=== PATIENT | female | born 2000 | race American Indian/Alaskan Native ===

== ENCOUNTER 2020-02-24 00:41 | Observation (INO) | payer OTHER ==
[2020-02-24] MEDS ORDERED: MORPHINE 4 MG/1 ML INJ IV ONE (00:49)
[2020-02-24] MEDS ORDERED: SODIUM CHLORIDE 0.9% 1000 ML 1,000 ML IV ONE (00:49)
[2020-02-24] MEDS ORDERED: ONDANSETRON 4 MG/2 ML INJ IV ONE (00:49)
--- NOTE | 2020-02-24 00:50 | Emergency Department Report ---
ED General Adult HPI - General Chief complaint: OB/Uterine Contractions Stated complaint: 19 WEEKS /ABDOMINAL PAIN PUI?: No Time Seen by Provider: 02/24/20 00:48 Source: patient, EMS ( EMS documentation not available at time of chart dictation ), RN notes reviewed Mode of arrival: Stretcher Limitations: Physical Limitation - History of Present Illness Initial comments: The patient was evaluated in the emergency department for symptoms described in the history of present illness. He/she was evaluated in the context of the global COVID-19 pandemic, which necessitated consideration that the patient might be at risk for infection with the virus that causes COVID-19. Institutional protocols and algorithms that pertain to the evaluation of patients at risk for COVID-19 are in a state of rapid change based on inform ation released by regulatory bodies including the CDC and federal and state organizations. These policies and algorithms were followed during the patient's care in the emergency department. Please note that these policies, procedures and recommendations changed on a rapid basis. During the entire history and physical examination, I am swatch paster and escorted by vice president quality assurance Brenna Hopson Patient is a 20-year-old female, who is G3, P1, last menstrual period early October, who follows with an outside ORCHESTRA DIRECTOR group, brought to the hospital by emergency medical services with a complaint of nontraumatic abdominal pain, cramping, vaginal bleeding and spotting. Symptoms are constant for the past few hours. The patient denies headache, neck pain, chest pain, shortness of breath, irritative and obstructive urinary symptoms. She denies COVID symptoms. Her symptoms were constant. In the emergency room, the patient delivered a nonviable fetus, which was not breathing, or moving, still attached to the umbilical cord, with the placenta still within the patient's uterus. The patient was accepted to transfer to the labor and delivery service by desktop support technician Ellen Dave, working with [facility] Supervisor -: Sudden, hour(s) Consistency: constant Improves with: none Worsens with: none - Related Data Allergies Allergy/AdvReac Type Severity Reaction Status Date / Time strawberry Allergy Rash Verified 02/24/20 00:46 ED Review of Systems ROS: Stated complaint: 19 WEEKS /ABDOMINAL PAIN Other details as noted in HPI Constitutional: denies: fever Eyes: denies: eye discharge ENT: denies: epistaxis Respiratory: denies: cough Cardiovascular: denies: syncope Gastrointestinal: abdominal pain Genitourinary: abnormal menses Neurological: weakness Psychiatric: anxiety ED Physical Exam - General Limitations: Physical Limitation General appearance: alert, anxious, in distress - Head Head exam: Present: atraumatic, normocephalic - Eye Eye exam: Present: normal appearance, EOMI. Absent: nystagmus - ENT ENT exam: Present: normal exam, normal orophraynx, mucous membranes moist, normal external ear exam - Neck Neck exam: Present: normal inspection, full ROM. Absent: tenderness, meningismus - Respiratory Respiratory exam: Absent: respiratory distress, wheezes, rales, rhonchi, stridor, decreased breath sounds - Cardiovascular Cardiovascular Exam: Present: normal rhythm, tachycardia, normal heart sounds. Absent: systolic murmur, diastolic murmur, rubs, gallop - GI/Abdominal GI/Abdominal exam: Present: soft. Absent: distended, tenderness, guarding, rebound, rigid, pulsatile mass - External exam: Present: normal external exam Speculum exam: Present: vaginal bleeding Bi-manual exam: Present: other (Chaperoned by Brenna Hopson) - Extremities Exam Extremities exam: Present: normal inspection, full ROM, other (2+ pulses noted in the bilateral upper and lower extremities. There is no palpable cord. negative Homans sign. Muscular compartments are soft. The pelvis is stable.). Absent: pedal edema, calf tenderness - Back Exam Back exam: Present: normal inspection, full ROM. Absent: tenderness, CVA tenderness (R), CVA tenderness (L), paraspinal tenderness, vertebral tenderness - Neurological Exam Neurological exam: Present: alert, other (No facial droop. Tongue midline. Extraocular movements intact bilaterally. Facial sensation intact to light touch in V1, V2, V3 distribution bilaterally. 5 and a 5 strength in 4 extremities. Sensation intact to light touch in 4 extremities.) - Psychiatric Psychiatric exam: Present: anxious - Skin Skin exam: Present: warm, dry, intact, normal color. Absent: rash ED Course Vital Signs 02/24/20 02/24/20 02/24/20 00:46 00:51 01:00 Temperature Pulse Rate 103 H 98 H 86 Respiratory 30 H 18 Rate Blood Pressure 127/52 123/64 O2 Sat by Pulse 100 100 Oximetry 02/24/20 02/24/20 01:10 02:19 Temperature 98.8 F 98.5 F Pulse Rate Respiratory Rate Blood Pressure O2 Sat by Pulse Oximetry - Reevaluation(s) Reevaluation #1: 02/24/20 01:33 Patient delivered placenta while in the emergency room. She appears more comfortable. Laboratory studies and ultrasound pending. Depending on results of ultrasound, if there are no retained products of conception identified, patient may not require transfer to labor and delivery. The patient has been updated. Reevaluation #2: 02/24/20 02:46 Laboratory studies are reviewed and appreciated. Ultrasound interpretation is pending at this time. Patient to be transferred to labor and delivery floor for observation serial H&H. Mild hypokalemia reviewed and appreciated. We will replete this in the emergency room. ED Medical Decision Making - Lab Data Result diagrams: 02/24/20 01:44 02/24/20 01:44 Vital Signs 02/24/20 02/24/20 02/24/20 00:46 00:51 01:00 Temperature Pulse Rate 103 H 98 H 86 Respiratory 30 H 18 Rate Blood Pressure 127/52 123/64 O2 Sat by Pulse 100 100 Oximetry 02/24/20 01:10 Temperature 98.8 F Pulse Rate Respiratory Rate Blood Pressure O2 Sat by Pulse Oximetry Lab Results 02/24/20 02/24/20 02/24/20 Range/Units 01:44 01:44 01:44 WBC 10.8 (4.5-11.0) K/mm3 RBC 3.02 L (3.65-5.03) M/mm3 Hgb 9.9 L (10.1-14.3) gm/dl Hct 28.9 L (30.3-42.9) % MCV 96 (79-97) fl MCH 33 H (28-32) pg MCHC 34 (30-34) % RDW 13.5 (13.2-15.2) % Plt Count 246 (140-440) K/mm3 Lymph % (Auto) 13.1 L (13.4-35.0) % [place] % (Auto) 7.9 H (0.0-7.3) % Eos % (Auto) 0.2 (0.0-4.3) % Baso % (Auto) 0.2 (0.0-1.8) % Lymph # 1.4 (1.2-5.4) K/mm3 [place] # 0.9 H (0.0-0.8) K/mm3 Eos # 0.0 (0.0-0.4) K/mm3 Baso # 0.0 (0.0-0.1) K/mm3 Seg Neutrophils % 78.6 H (40.0-70.0) % Seg Neutrophils # 8.5 H (1.8-7.7) K/mm3 PT 14.7 (12.2-14.9) Sec. INR 1.14 H (0.87-1.13) Sodium 140 (137-145) mmol/L Potassium 3.3 L (3.6-5.0) mmol/L Chloride 108.6 H (98-107) mmol/L Carbon Dioxide 19 L (22-30) mmol/L Anion Gap 16 mmol/L BUN 6 L (7-17) mg/dL Creatinine 0.4 L (0.6-1.2) mg/dL Estimated GFR > 60 ml/min BUN/Creatinine Ratio 15 % Glucose 87 (65-100) mg/dL Calcium 8.3 L (8.4-10.2) mg/dL Total Bilirubin 0.20 (0.1-1.2) mg/dL AST 8 (5-40) units/L ALT < 5 L (7-56) units/L Alkaline Phosphatase 45 (35-129) units/L Total Protein 6.0 L (6.3-8.2) g/dL Albumin 3.1 L (3.9-5) g/dL Albumin/Globulin Ratio 1.1 % - Radiology Data Radiology results: report reviewed, image reviewed Print Report Referring Physician: ZANA HUDSON Patient Name: ARIADNE CHAN Date of : 2000 Sex: Female Report Date: 2020-02-24 Report Status: Finalized Findings [facility] [address] [place] [address] Ultrasound Report Signed Patient: ARIADNE CHAN MR #: [id number] : 2000 Acct:[id number] Age/Sex: 20 / F ADM Date: 02/24/20 Loc: ED Attending Dr: Ordering Physician: ZANA HUDSON MD Date of Service: 02/24/20 Procedure(s): US OB limited Accession Number(s): [id number] cc: ZANA HUDSON MD LIMITED OBSTETRICAL ULTRASOUND HISTORY: Miscarriage. Evaluate for for retained products of conception. FINDINGS: Imaging was performed by transabdominally and endovaginally. The uterus measures 14.5 x 8.3 x 9.2 cm and is mildly heterogeneous. The endometrial stripe is mildly thickened measuring 1.3 cm. No intrauterine or retained products of conception are identified. The ovaries are nonvisualized. No adnexal mass or fluid seen. IMPRESSION: 1. Mildly thickened endometrial stripe. 2. No retained products of conception or intrauterine . Signer Name: Freeman Collazo MD Signed: 02/24/2020 2:40 AM Workstation Name: [id number] Transcribed By: ES Dictated By: Freeman Collazo MD Electronically Authenticated By: Freeman Collazo MD Signed Date/Time: 02/24/20239 DD/ 7 - Medical Decision Making Differential diagnosis, including but not limited to: Spontaneous miscarriage/, retained placenta Assessment and plan: 20-year-old female, who is reportedly G3, P1, presenting with a previable , less than 20 weeks, delivered spontaneously in the emergency room, nonviable fetus is still attached to umbilical cord and placenta. The patient is protecting her airway at this time and is hem odynamically stable, and was accepted to the labor and delivery floor for delivery of the placenta and further management. Critical care attestation.: If time is entered above; I have spent that time in minutes in the direct care of this critically ill patient, excluding procedure time. ED Disposition Clinical Impression: Miscarriage Retained placenta Qualifiers: Retained placenta detail: unspecified Qualified Code(s): O73.0 - Retained placenta without hemorrhage Disposition: DC/TX-70 ANOTHER TYPE HLTHCARE Is pt being admited?: No Does the pt Need Aspirin: No Condition: Stable Additional Instructions: Patient should not eat anything. Patient is going to be sent to labor and delivery for further evaluation and management of miscarriage, and retained placenta. Please follow instructions as per ORCHESTRA DIRECTOR team Referrals: [facility] [Provider Group] - STEVE (Patient will be discharged from emergency room to go to labor and delivery) Time of Disposition: 01:10 (Patient will be discharged and transferred to labor and delivery)
[2020-02-24 02:20] LABS: Albumin 3.1 g/dL (3.9-5); Blood Urea Nitrogen 6 mg/dL (7-17); Calcium 8.3 mg/dL (8.4-10.2); Hemolysis Index 5
[2020-02-24 02:21] LABS: Basophils % (Auto) 0.2 % (0.0-1.8); Eosinophils % (Auto) 0.2 % (0.0-4.3); Hematocrit 28.9 % (30.3-42.9); Hemoglobin 9.9 gm/dl (10.1-14.3); Lymphocytes # (Auto) 1.4 K/mm3 (1.2-5.4); Lymphocytes % (Auto) 13.1 % (13.4-35.0); Mean Corpuscular HGB Conc 34 % (30-34); Mean Corpuscular Volume 96 fl (79-97); Monocytes # (Auto) 0.9 K/mm3 (0.0-0.8); Monocytes % (Auto) 7.9 % (0.0-7.3); Platelet Count 246 K/mm3 (140-440); Red Blood Count 3.02 M/mm3 (3.65-5.03); Red Cell Distribution Width 13.5 % (13.2-15.2)
[2020-02-24 02:27] LABS: Alanine Aminotransferase < 5 units/L (7-56); BUN/Creatinine Ratio 15
[2020-02-24 02:33] LABS: INR 1.14 (0.87-1.13)
--- NOTE | 2020-02-24 02:41 | Event Note ---
Date: 02/24/20 (19.2 wks delivered) Pt presented to ER via EMS with c/o abdominal pain. Upon admission to ED pt delivered non viable fetus and placenta @ 19.2 wks. Fetus does not appear to have any abnormalities and placenta appears to be intact. Minimal bleeding noted. Fundus firm below 2. Will put in orders and H&P upon discharge from ED.
--- NOTE | 2020-02-24 02:44 | Ultrasound Report ---
LIMITED OBSTETRICAL ULTRASOUND HISTORY: Miscarriage. Evaluate for for retained products of conception. FINDINGS: Imaging was performed by transabdominally and endovaginally. The uterus measures 14.5 x 8.3 x 9.2 cm and is mildly heterogeneous. The endometrial stripe is mildly thickened measuring 1.3 cm. N o intrauterine or retained products of conception are identified. The ovaries are nonvisualized. No adnexal mass or fluid seen. IMPRESSION: 1. Mildly thickened endometrial stripe. 2. No retained products of conception or intrauterine . Signer Name: Freeman Collazo MD Signed: 02/24/2020 2:40 AM Workstation Name: [id number]
[2020-02-24] MEDS ORDERED: POTASSIUM CHLORIDE ER 20 MEQ TAB PO ONE ×2 (02:45→09:00)
[2020-02-24] MEDS ORDERED: LANOLIN/ZINC/DIMETHICONE (LANSINOH) 7 GM TP PRN (05:20)
[2020-02-24] MEDS ORDERED: PROMETHAZINE 25 MG TAB PO PRN (05:20)
[2020-02-24] MEDS ORDERED: ONDANSETRON 4 MG/2 ML INJ IV PRN (05:20)
[2020-02-24] MEDS ORDERED: diphenhydrAMINE 25 MG CAP PO PRN (05:20)
[2020-02-24] MEDS ORDERED: MAGNESIUM HYDROXIDE (MOM) ORAL LIQD UDC PO PRN (05:20)
[2020-02-24] MEDS ORDERED: PROMETHAZINE 25 MG RECT SUPP PR PRN (05:20)
[2020-02-24] MEDS ORDERED: WITCH HAZEL/ GLYCERIN PAD TP PRN (05:20)
[2020-02-24] MEDS ORDERED: ACETAMINOPHEN 500 MG TAB PO PRN (05:29)
--- NOTE | 2020-02-24 05:40 | History and Physical Report ---
History of Present Illness Date of examination: 02/24/20 ( of non viable fetus @ 19.5 wks) Date of admission: 02/24/20 05:20 Chief complaint: I was having abdominal pain all day long and tonight it got stronger. History of present illness: Pt presented to the ER after having abdominal pain for 2 days. States that it started on the AM of 9 and had stopped, but tonight picked back up. Pt states that she went to the restroom and "felt something was hanging out". She had her boyfriend call the ambulance and she was then transported to [facility] ER. Past History Past Medical History: no pertinent history Past Surgical History: section Family/Genetic History: none Social history: no significant social history - Obstetrical History Expected Date of Delivery: 07/15/20 Actual Gestation: 19 Week(s) 5 Day(s) : 3 Para: 1 Hx # Term Pregnancies: 1 Number of Pregnancies: 0 Spontaneous Abortions: 0 Induced : 1 Number of Living Children: 1 Medications and Allergies Allergies Allergy/AdvReac Type Severity Reaction Status Date / Time strawberry Allergy Rash Verified 02/24/20 00:46 Active Meds: Active Medications Acetaminophen (Tylenol) 500 mg PO Q6H PRN PRN Reason: Pain MILD(1-3)/Fever >100.5/[place]FF[place] Bisacodyl (Dulcolax) 10 mg CA BID PRN PRN Reason: Constipation Diphenhydramine HCl (Benadryl) 25 mg PO Q6H PRN PRN Reason: Itching Diphtheria/Tetanus/Acell Pertussis (Adacel) 0.5 ml IM .ONCE ONE Stop: 02/25/20 06:01 Docusate Sodium (Colace) 100 mg PO BID REGINA Ibuprofen (Ibuprofen) 800 mg PO Q8H REGINA Magnesium Hydroxide (Milk Of Magnesia) 30 ml PO HS PRN PRN Reason: Constipation Multi-Ingredient Ointment (Lansinoh) 1 applic TP PRN PRN PRN Reason: Sore Nipples Multivitamins/Iron/Calcium ( Vitamin) 1 each PO QDAY REGINA Ondansetron HCl (Zofran) 4 mg IV Q8H PRN PRN Reason: Nausea And Vomiting Promethazine HCl (Phenergan) 25 mg CA Q6H PRN PRN Reason: Nausea And Vomiting Promethazine HCl (Phenergan) 25 mg PO Q6H PRN PRN Reason: Nausea And Vomiting Sodium Chloride (Sodium Chloride Flush Syringe 10 Ml) 10 ml IV PRN PRN PRN Reason: LINE FLUSH Witch Mia/Glycerin (Tucks Pad) 1 each TP PRN PRN PRN Reason: Hemorrhoid/cleansing/soothing Review of Systems All systems: negative - Vital Signs Vital signs: Vital Signs Pulse Resp Pulse Ox 103 H 30 H 100 02/24/20 00:46 02/24/20 00:46 02/24/20 00:46 Temp Pulse Resp BP Pulse Ox 98.5 F 91 H 15 119/79 100 02/24/20 02:19 02/24/20 03:00 02/24/20 03:00 02/24/20 03:00 02/24/20 03:00 Upon entering the ER, pt was laying in bed with no s/sx of distress. Fetus and placenta had delivered before my arrival. Inspected placenta, appears to be complete, intact. Fetus appears normal and no abnormalities seen. Fundus firm @ the U. Minimal bleeding noted. - Physical Exam Breasts: Positive: deferred Cardiovascular: Regular rate Lungs: Positive: Normal air movement Abdomen: Positive: normal appearance, soft Genitourinary (Female): Positive: normal external genitalia, normal perenium Vulva: both: normal Vagina: Positive: normal moisture Cervix: Negative: lesion, discharge Uterus: Positive: normal size, normal contour Adnexa: both: normal Anus/Rectum: Positive: normal perianal skin, heme negative. Negative: rectal mass, hemorrhoids Extremities: Positive: normal Deep Tendon Reflex Grade: Normal +2 Results Result Diagrams: 02/24/20 01:44 02/24/20 01:44 Abnormal lab results 02/24/20 02/24/20 02/24/20 Range/Units 01:43 01:44 01:44 RBC 3.02 L (3.65-5.03) M/mm3 Hgb 9.9 L (10.1-14.3) gm/dl Hct 28.9 L (30.3-42.9) % MCH 33 H (28-32) pg Lymph % (Auto) 13.1 L (13.4-35.0) % [place] % (Auto) 7.9 H (0.0-7.3) % [place] # 0.9 H (0.0-0.8) K/mm3 Seg Neutrophils % 78.6 H (40.0-70.0) % Seg Neutrophils # 8.5 H (1.8-7.7) K/mm3 INR (0.87-1.13) Potassium 3.3 L (3.6-5.0) mmol/L Chloride 108.6 H (98-107) mmol/L Carbon Dioxide 19 L (22-30) mmol/L BUN 6 L (7-17) mg/dL Creatinine 0.4 L (0.6-1.2) mg/dL Calcium 8.3 L (8.4-10.2) mg/dL ALT < 5 L (7-56) units/L Total Protein 6.0 L (6.3-8.2) g/dL Albumin 3.1 L (3.9-5) g/dL HCG, Quant 95906 H (0-4) mIU/mL 02/24/20 Range/Units 01:44 RBC (3.65-5.03) M/mm3 Hgb (10.1-14.3) gm/dl Hct (30.3-42.9) % MCH (28-32) pg Lymph % (Auto) (13.4-35.0) % [place] % (Auto) (0.0-7.3) % [place] # (0.0-0.8) K/mm3 Seg Neutrophils % (40.0-70.0) % Seg Neutrophils # (1.8-7.7) K/mm3 INR 1.14 H (0.87-1.13) Potassium (3.6-5.0) mmol/L Chloride (98-107) mmol/L Carbon Dioxide (22-30) mmol/L BUN (7-17) mg/dL Creatinine (0.6-1.2) mg/dL Calcium (8.4-10.2) mg/dL ALT (7-56) units/L Total Protein (6.3-8.2) g/dL Albumin (3.9-5) g/dL HCG, Quant (0-4) mIU/mL All other labs normal. Assessment and Plan 20 y.o. @ 19.5 wks, with delivery of 19.5 wk non viable fetus in the ER. Will admit to for care. Of note, pt with K+ level found to be 3.3. K dur PO was ordered by ER physician. Will order redraw CMP with H/H . Dr. Chua made aware of pt admission and status.
[2020-02-24] MEDS ORDERED: IBUPROFEN 800 MG TAB PO SCH (06:00)
[2020-02-24] MEDS ORDERED: PRENATAL VIT27-FE FUMARATE-FOLIC ACID VIT TAB PO SCH (10:00)
[2020-02-24] MEDS ORDERED: DOCUSATE SODIUM 100 MG CAP PO SCH (10:00)
[2020-02-24 11:57] LABS: Amphetamine Screen,Urine PRESUMPTIVE NEGATIVE; Benzodiazepines Screen,Urine PRESUMPTIVE NEGATIVE; Cannabinoid Screen,Urine PRESUMPTIVE POSITIVE; Cocaine Screen,Urine PRESUMPTIVE NEGATIVE; Methadone Screen,Urine PRESUMPTIVE NEGATIVE; Opiate Screen,Urine PRESUMPTIVE NEGATIVE
[2020-02-24 15:46] LABS: Hematocrit 31.8 % (30.3-42.9); Hemoglobin 10.6 gm/dl (10.1-14.3)
[2020-02-24 15:56] LABS: Albumin 3.4 g/dL (3.9-5); Blood Urea Nitrogen 4 mg/dL (7-17); Calcium 8.9 mg/dL (8.4-10.2); Hemolysis Index 4
[2020-02-24 15:58] LABS: Alanine Aminotransferase < 5 units/L (7-56); BUN/Creatinine Ratio 10
[2020-02-24 16:09] LABS: Hepatitis C Virus Antibody Non-Reactive (NonReactive)
--- NOTE | 2020-02-24 16:25 | Discharge Summary ---
Providers - Providers Date of Admission: 02/24/20 05:20 Date of discharge: 02/24/20 (Pt has a very strong desire to go home.) Attending physician: RAMSES ROME 02/24/20 12:07 Consult to Case Management [CONS] Routine Services Needed at Discharge: Contact Representative Notified:: case mgt Primary care physician: ELTON CABRERA Hospitalization Reason for admission: IUP - , labor, IUFD Delivery: Episiotomy: none Laceration: none Other procedures: none complications: none Discharge diagnosis: IUP at term delivered Hospital course: S: Pt is doing very well. Has no desire to stay in the hospital. Passing flatus, voiding, and ambulating okay. Pain well controlled. BC: will f/u with primary OBGYN. O: VSS. Adequate I&O's. Potassium level is 3.6. H/H 10.6/31.8. Fundus firm, minimal bleeding noted. A: 20 y.o. s/p of non viable fetus @ 19.5 wks, stable for discharge home. Found to have low potassium that was replaced with PO Kdur and is now WNL. P: Pt states that she prefers to f/u with her primary OBGYN . She will schedule an appointment once discharged home. Condition at discharge: Good Disposition: DC-01 TO HOME OR SELFCARE Plan - Provider Discharge Summary Activity: routine, no sex for 6 weeks, no heavy lifting 4 weeks, no strenuous exercise Diet: routine Instructions: routine Additional instructions: [] Smoking cessation referral if applicable(refer to patient education folder for contact #) [] Refer to [facility] Booklet Call your doctor immediately for: * Fever > 100.5 * Heavy vaginal bleeding ( >1 pad per hour) * Severe persistent headache * Shortness of breath * Reddened, hot, painful area to leg or breast * Drainage or odor from incision. * Keep incision clean and dry at all times and follow doctor's instructions regarding bathing/showering - Follow up plan Follow up: [facility] [Provider Group] - 7 Days (Pt to schedule a f/u with her primary OBGYN as that is her wishes. ) Forms: [facility] Discharge Summary
[2020-02-24 17:11] VITALS: BP 122/65
[2020-02-25] MEDS ORDERED: DIPHtheria,PERTUSSIS(ACELL),TETANUS VACCINE/PF 0.5 ML VIAL IM ONE (06:00)
== END 2020-02-24 17:10 | disposition home or self-care (01) ==
LOC: ED 00:41 → OB 05:20
PROVIDERS: ADMIT Obstetrics & Gynecology; ATTEND Obstetrics & Gynecology
DX: Z39.0 Encounter for care and examination of mother immediately after delivery (principal); O73.0 Retained placenta without hemorrhage; O03.4 Incomplete spontaneous abortion without complication; Z3A.19 19 weeks gestation of pregnancy; Z79.899 Other long term (current) drug therapy
CPT/HCPCS: 36415; 76857; 80053; 80307; 84702; 85014; 85018; 85025; 85610; 86592; 86706; 86762; 86803; 86850; 86900; 86901; 87806; 96361; 96374; 96375; 99284; G0378; J2270; J2405; J7030; 76815